=== PATIENT | female | born 1955 | race Caucasian/White ===

== ENCOUNTER → 2023-05-27 | Outpatient (CLI) | payer MEDICARE ==
--- NOTE | 2023-05-27 16:57 | CA ---
Stress Echo Report Lara Buckley Age: 68 Gender: F : 1955 Exam Date: 05/27/2023 10:18 Exam Location: Ht (in): 62 Wt (lb): 189 Ordering Physician: Cornelio Whitmore DO Referring Physician: CORNELIO WHITMORE,, Pattern Lease Inspector: VINCENT, Technologist Procedure CPT: Indication: R94.31 ICD-9 Codes: Rhythm: Patient History: Cardiac Medications: Medications in past 24 hours: Contrast: Stress Results Protocol: Alvarado Total dose(mL): Exercise Duration (min:sec): 03:[address] Depression (mm): Angina Score: Corona Score: METS: 5.4 Resting HR: 91 Resting BP: 192 / 81 Peak HR: 161 Peak BP: 239 / 111 Max Predicted HR: 152 106 % Max Predicted HR Target HR: 129 Double Product: [id number] Stress Summary: BP Response: Reason for Termination: Cardiac Symptoms: ECG Analysis Resting ECG: Normal sinus rhythm, heart rate 79 beats a minute Stress ECG: Normal sinus rhythm. [address] depressions, which represents physiological response. Arrhythmia: Few monomorphic PVCs noticed during peak stress with one 4 beat run nonsustained V. tach. No sustained Echo Analysis Resting Echo: Peak Echo Analysis: MEASUREMENTS (Male/Female) Normal Values CONCLUSIONS Patient exercised for 3 minutes 43 seconds, achieving 5.4 mets Poor exercise tolerance Hypertensive at baseline. Hypertensive response to exercise Nonischemic ECG response to exercise Dr Willard Belle (Electronically Signed) Final Date: 27 May 2023 16:56
== END | disposition home or self-care (01) ==
LOC: RADNMMAIN 09:32
PROVIDERS: ATTEND Internal Medicine
DX: Z01.810 Encounter for preprocedural cardiovascular examination (principal); I10 Essential (primary) hypertension; R94.31 Abnormal electrocardiogram [ECG] [EKG]
CPT/HCPCS: 93351

== ENCOUNTER 2023-06-07 13:08 | Day surgery (SDC) | payer MEDICARE ==
[2023-06-05 15:53] VITALS: BMI 34.0
[~2023-06-07 13:08] MED LIST: ALPRAZolam 0.25 MG TAB PO PRN; ALPRAZolam 0.5 MG TAB PO PRN; ASPIRIN 325 MG TAB PO STA; ATORVASTATIN 80 MG TAB PO STA; HEPARIN SODIUM,PORCINE (1 ML) 2,500 UNIT in SODIUM CHLORIDE 0.9% 250 ML IRRIGATION PRN; HEPARIN SODIUM,PORCINE 10,000 UNIT in SODIUM CHLORIDE 0.9% 1,000 ML IRRIGATION PRN; NITROGLYCERIN SL TABS 0.4 MG TAB SUBLINGUAL PRN
[2023-06-07] MEDS ORDERED: SODIUM CHLORIDE 0.9% 1,000 ML IV ONE (13:50)
[2023-06-07] MEDS ORDERED: LIDOCAINE 1% INJ 10MG/ML (20 ML MDV) ONE (14:18)
[2023-06-07] MEDS ORDERED: VERAPAMIL 2.5 MG/ML 2 ML AMP ONE (14:18)
[2023-06-07] MEDS ORDERED: HEPARIN SODIUM 1,000 UN/ML (10ML VL) ONE (14:23)
[2023-06-07] MEDS ORDERED: fentaNYL (PF) 50 MCG/ML 2 ML AMP ONE (14:23)
[2023-06-07] MEDS ORDERED: fentaNYL (PF) 50 MCG/1 ML VIAL IVP ONE (14:28)
[2023-06-07] MEDS ORDERED: MIDAZOLAM 2 MG/2 ML VIAL IVP ONE (14:28)
[2023-06-07] MEDS ORDERED: LIDOCAINE 1% INJ 10MG/ML (20 ML MDV) SQ ONE (14:30)
[2023-06-07] MEDS ORDERED: VERAPAMIL SYRINGE (5 MG/10 ML) INTRAARTER ONE (14:33)
[2023-06-07] MEDS ORDERED: HEPARIN SODIUM 1,000 UN/ML (10ML VL) IV ONE (14:36)
[2023-06-07] MEDS ORDERED: IOPAMIDOL-370 100ML BTL INJ ONE (14:50)
--- NOTE | 2023-06-07 14:56 | P.CARDCATH ---
Description of Procedure: PROCEDURES PERFORMED: Left heart catheterization, bilateral coronary angiography, ultrasound guided arterial access, iFR LAD INDICATION: Abnormal stress test CONSENT:I have discussed the risks, benefits and alternative therapies for the above-mentioned procedure and for both sedation/analgesia as well as necessary blood product administration, if indicated, as they pertain to this patient. The patient has indicated understanding and acceptance of the risks and procedures discussed. PROCEDURE: After the risks, benefits and alternatives of the above mentioned procedure explained in detail with the patient, informed consent was obtained. Patient was taken to the catheterization lab and prepped and draped in usual fashion. Ultrasound guidance was used to assess for arterial access. 1% lidocaine was used to anesthetize the right radial artery. A 6-Lithuanian sheath was placed in the right radial artery using modified Seldinger technique and ultrasound guidance. Left coronary angiography was performed with a 5-Lithuanian JL 3.5 catheter and right coronary angiography was performed with a 5-Lithuanian JR5 catheter in various views. A 5-Lithuanian FR5 catheter was inserted into the left ventricle and pressure measurements were obtained. The mid LAD appeared predominantly more mild to moderate however was nearly 50% and some views and was in the area of abnormal stress test and therefore decision made to perform iFR. Through the FL 3.5 catheter, a 0.014 pressure wire was advanced into the left main and normalized. The pressure wire was then advanced 1 cm distal to the mid LAD lesion. The initial reading was 0.9 however there was some drift noted and therefore the wire was read normalized and advance and iFR was normal at 0.94. The right radial sheath was removed and a TR band was placed with hemostasis achieved. The patient tolerated the procedure well. Patient was transported back to the post catheterization holding area in stable condition. Conscious Sedation: Patient was monitored under the direct supervision of myself for conscious sedation using Versed and fentanyl for a total duration of 23 minutes HEMODYNAMICS: Aorta: 164/69 LV: 161/6, LVDP 13 SELECTIVE CORONARY ARTERIOGRAPHY: LEFT MAIN: The left main is a large caliber vessel which bifurcates into the LAD and circumflex. There is no significant stenosis. LEFT ANTERIOR DESCENDING CORONARY ARTERY: LAD is a large caliber vessel which wraps around to the apex. There is are tandem 30-40% and 40-50% mid LAD stenoses and otherwise mild luminal irregularities. LEFT CIRCUMFLEX CORONARY ARTERY: Left circumflex is a moderate caliber vessel without significant stenosis. RIGHT CORONARY ARTERY: The right coronary artery is a large caliber vessel which gives off a PDA and PLV branch and is the dominant vessel. There is no significant stenosis. FINAL IMPRESSION: 1. Relatively normal coronary arteries other than mid LAD 40-50% stenosis, iFR normal 2. Normal left sided filling pressures PLAN: 1. Aggressive risk factor modification per most recent ACC/AHA guidelines. 2. Follow-up in the office in 1-2 weeks.
[2023-06-07 15:46] LABS: Glucose,Whole Blood 96 mg/dL (70-110)
[2023-06-07] MEDS ORDERED: hydrALAZINE HCL 20 MG/ML 1 ML VIAL ONE (16:08)
--- NOTE | 2023-06-07 16:09 | CT ---
EXAMINATION TYPE: CODE STROKE: CT brain wo contr DATE OF EXAM: 06/07/2023 COMPARISON: None HISTORY: 68-year-old female Rule out stroke. TECHNIQUE: Examination was done in axial plane without intravenous contrast. Coronal and sagittal r econstructions performed. CT DLP: 1035.10 mGycm Automated exposure control for dose reduction was used. FINDINGS: Exam limitations due to motion along the vertex of the head. Allowing for this limitation, there is n o evidence of acute intracranial hemorrhage, acute ischemic changes, mass, mass-effect, or extra-axi al fluid collection. There is no effacement of cerebral sulci or basal subarachnoid cisterns. There is no hydrocephalus. There is no midline shift. Mccall-white matter distinction is preserved. Partially empty sella. There are 9 mm polyp or mucosal retention cyst along the anterior roof of the left maxillary sinus. L eftward nasal septal deviation. Trace mucosal thickening ethmoid air cells. Orbits and globes are int act. Mastoid air cells are well pneumatized. IMPRESSION: Some motion limiting assessment at the top of the head. Otherwise, no acute intracranial abnormality seen.
--- NOTE | 2023-06-07 16:44 | CT ---
EXAMINATION TYPE: CODE STROKE: CTA head neck DATE OF EXAM: 06/07/2023 COMPARISON: CT brain same day HISTORY: 68-year-old female Rule out stroke. TECHNIQUE: Contiguous axial scanning of the head and neck performed with IV Contrast, patient injecte d with 65 ml mL of Isovue 370. Coronal/sagittal MIP reconstructions performed. 3-D reconstructions ge nerated on a dedicated workstation. CT DLP: 469.0 mGycm Automated exposure control for dose reduction was used. FINDINGS: NECK: Large main pulmonary arteries suggesting underlying pulmonary hypertension. Variant direct takeoff of the left vertebral artery directly from the aortic arch. Great vessels from the aortic arch are patent. There is a dominant left vertebral artery. Otherwise, both vessels are patent throughout their course . The right common carotid artery is patent. Mild atherosclerotic change of the right carotid bulb with mild, less than 25% narrowing at the proxi mal right ICA by NASCET criteria. Remainder of the right ICA is patent. The left common and left internal carotid arteries are widely patent without significant narrowing. HEAD: Dominant left vertebral artery. The right vertebral artery terminates as a PICA branch. The basilar a rtery is patent. There is persistent origin left posterior cerebral artery with hypoplastic P1 segment. Posterio r circulation otherwise patent. The dural venous sinuses are patent. The bilateral internal carotid arteries are patent. Slightly hypoplastic A1 segment left anterior cer ebral artery. Otherwise, remainder of the anterior circulation is patent. No aneurysmal change is seen. IMPRESSION: 1. NECK: DOMINANT LEFT VERTEBRAL ARTERY THAT TAKES A VARIANT ORIGIN DIRECTLY FROM THE AORTIC ARCH. TH ERE IS MILD, LESS THAN 25% PROXIMAL RIGHT ICA STENOSIS. NO HEMODYNAMICALLY SIGNIFICANT INTERNAL CAROT ID ARTERY STENOSIS ON EITHER SIDE. 2. HEAD: ANATOMIC VARIATION WITH THE RIGHT VERTEBRAL ARTERY TERMINATING A PICA BRANCH. PERSISTENT ORIGIN LEFT POSTERIOR CEREBRAL ARTERY. HYPOPLASTIC A1 SEGMENT LEFT ANTERIOR CEREBRAL ARTERY. NO LARGE VESSEL INTRACRANIAL ARTERIAL OCCLUSION, SIGNIFICANT STENOSIS, OR ANEURYSMAL CHANGE IS SEEN.
--- NOTE | 2023-06-07 17:21 | P.CNNES ---
History of Present Illness Consult date: 06/07/23 Requesting physician: Cornelio Caraballo Reason for Consult: Stroke code History of Present Illness: Patient is a 68-year-old right-handed female with history of tobacco abuse, abnormal EKG, hypertension, came to the hospital for elective cardiac catheterization for abnormal EKG. Patient had shoulder issues, and was planning for shoulder replacement but was found to have abnormal EKG with lateral T-wave inversions and family history of CAD. Therefore patient was scheduled for elective cardiac catheterization, which was performed today. During the procedure, patient received 2 mg of Versed IV push, fentanyl 75 g IV push 1 dose and heparin 3500 units IV 1 dose. Patient also has received 325 mg of aspirin prior to the cath. She has been taking aspirin 81 mg daily for last 1 week since she was found to have abnormal EKG. Cardiac cath performed today showed relatively normal coronary arteries other than made LAD 40-50% stenosis. Normal left-sided filling pressures. Aggressive risk factor modification was recommended. Patient's stress echo revealed poor exercise tolerance. Hypertensive at baseline. Hypertensive response to exercise. Apparently after the cardiac cath, patient was doing fine, went to the bathroom by herself. However at around 3:35 PM, patient started complaining of headache. Shortly after, she was noted to be stumbling on the words, not knowing her family, per patient, not making sense. She could not answer questions. This prompted stroke code. This was activated at 3:41 PM. There was no associated facial droop, visual disturbance, focal numbness, tingling or any focal weakness. Patient's vital signs just prior to stroke code showed blood pressure of 235/99, and repeat was 213/91. Patient's NIH stroke scale was 2. Patient was sent for computed tomography scan of the head, CTA of head and neck. When she returned back, the symptoms had resolved. The headache also resolved. Overall the symptoms lasted for about 30-35 minutes total. At present patient has no symptoms. All symptoms resolved. Stroke team discussed case with stroke neurologist from [place]. Patient was considered not a candidate for TPA. No LVO on CTA. Medical management. Home medications include aspirin 81 mg (started 06/05/2023), losartan 50 mg, metoprolol 12.5 mg, vitamin D and multivitamins. On medication started since May 2023. She was not on any medication. Patient has smoked half pack per day for 15 years. Patient has hypertension. Denies diabetes or any significant alcohol use. No previous history of strokes or TIA. Patient was diagnosed with hypertension just this month. Review of Systems Constitutional: Denies chills, Denies fever Eyes: denies blurred vision, denies discharge, denies pain Ears: deny: decreased hearing, ear discharge Ears, nose, mouth and throat: Denies headache (Patient had headache during stroke symptoms, but now resolved.), Denies sore throat Cardiovascular: Denies chest pain, Denies shortness of breath Respiratory: Denies cough, Denies excessive sputum Gastrointestinal: Denies abdominal pain, Denies diarrhea, Denies nausea, Denies vomiting Genitourinary: Denies dysuria, Denies hematuria Musculoskeletal: Denies low back pain, Denies myalgias, Denies neck pain Integumentary: Denies pruritus, Denies rash Neurological: Reports as per HPI Psychiatric: Denies anxiety, Denies depression Endocrine: Denies fatigue, Denies weight change Past Medical History Past Medical History: Hypertension, Myocardial Infarction (NM), Osteoarthritis (OA) Additional Past Medical History / Comment(s): "EKG showed silent heart attack, echo and stress test show I may have a blockage". Varicose vein right leg. Last Myocardial Infarction Date:: Unknown History of Any Multi-Drug Resistant Organisms: None Reported Past Surgical History: Appendectomy, Joint Replacement, Tonsillectomy Additional Past Surgical History / Comment(s): Left total knee replacement, procedure on toe, wisdom teeth removed, bilateral cataract surgery. Past Anesthesia/Blood Transfusion Reactions: No Reported Reaction Past Psychological History: No Psychological Hx Reported Smoking Status: Current every day smoker Past Alcohol Use History: None Reported Additional Past Alcohol Use History / Comment(s): Smokes 1/2 ppd, has smoked on and off for a total of 15 yrs. Past Drug Use History: None Reported - Past Family History Father Family Medical History: Cancer Additional Family Medical History / Comment(s): Skin cancer. Brother(s) Family Medical History: Cancer Additional Family Medical History / Comment(s): Prostate cancer. Mother Family Medical History: Cancer Additional Family Medical History / Comment(s): Lung cancer. Medications and Allergies Home Medications Medication Instructions Recorded Confirmed Type Aspirin [Adult Low Dose Aspirin EC] 81 mg PO DAILY 06/05/23 06/07/23 History Cholecalciferol [Vitamin D3 (25 25 mcg PO Q7D 06/05/23 06/05/23 History Mcg = 1000 Iu)] Losartan Potassium 50 mg PO HS 06/05/23 06/05/23 History Metoprolol Succinate [Metoprolol 12.5 mg PO HS 06/05/23 06/05/23 History Succinate ER] Multivitamins, Thera [Multivitamin 1 tab PO Q7D 06/05/23 06/05/23 History (formulary)] Vitamin B 50 mg PO Q7D 06/05/23 06/05/23 History Allergies Allergy/AdvReac Type Severity Reaction Status Date / Time codeine Allergy Unknown Verified 06/07/23 13:56 Physical Examination - Vital Signs Vital Signs: Vital Signs Temp Pulse Resp BP BP Pulse Ox 06/07/23 14:00 98 F 78 16 235/99 213/91 97 Intake and Output 06/07/23 06/07/23 06/07/23 06:59 14:59 22:59 Intake Total 150 Balance 150 Intake: IV 150 Other: Weight 86.7 kg Patient is an elderly female, very pleasant, in no acute distress. Patient is alert awake oriented to time place and person. Speech and language functions are normal. Patient can name and repeat very well. No aphasia or dysarthria. Attention, concentration and fund of knowledge is adequate. On cranial nerve examination, pupils are equal, round and reacting to light, visual solis are full on confrontation, with no neglect on double simultaneous stimulation. Extraocular muscles are intact with no nystagmus. Face is symmetric, tongue protrudes to the midline. Palatal elevation and sensation normal, hearing and shoulder shrug normal, facial sensation normal. On muscle strength testing, there is no pronator drift and the strength is normal in arms and legs distally and proximally. Deep tendon reflexes are symmetric 2+ all over in the arms and legs and plantars are downgoing bilaterally. Sensory to touch is equal with no neglect on double simultaneous stimulation. Cerebellar function showed no ataxia for [id number] testing. No dysdiadochokinesia. No ataxia for [id number] testing on either side. Tone and bulk of muscles normal. Gait deferred.. On general examination, there is no carotid bruit or murmur, S1-S2 audible. Chest is clear on consultation. Abdomen is soft nontender. No organomegaly, bowel sounds present. Peripheral pulses are present. No edema. Assessment and Plan Assessment: * Possible TIA versus acute encephalopathy from transient accelerated hypertension (hypertensive encephalopathy), occurred post cardiac catheterization. Symptoms lasted for about 35 minutes. At present all symptoms resolved. Current NIH stroke scale is 0. * Hypertension * Tobacco use * Right shoulder arthritis Plan: * Patient had possible TIA, symptoms now completely resolved. No indication for TPA. * Recommend observation overnight. Patient will undergo TIA workup. * 2-D echo with bubble study to rule out PFO * CTA head and neck showed: Mild less than 25% proximal right ICA stenosis. No hemodynamically significant stenosis ICA in either ICA. CTA of the head showed no large vessel intercranial arterial occlusion, significant stenosis or aneurysm. * No indication for MRI, as the symptoms were very brief, and all symptoms resolved. The yield is very low, and likely will not change the management. * Fasting a.m. lipid panel * Hemoglobin A1c * Aspirin 325 mg daily. * Optimize control of blood pressure. * Close neuro checks every 1 hour 4, then 2 hours 4, then every 4 hours.. * Recommend complete tobacco cessation. * Telemetry monitoring rule out any arrhythmia * Dr. Arriaga will cover neurology service over the weekend. Thank you for the consult.
[2023-06-07] MEDS: SODIUM CHLORIDE 0.9% 1,000 ML in EMPTY BAG 1 BAG IV SCH (18:34)
[2023-06-07] MEDS ORDERED: ACETAMINOPHEN TAB 500 MG TAB PO STA (18:47)
[2023-06-07] MEDS ORDERED: LOSARTAN 50 MG TAB PO SCH (21:00)
[2023-06-07] MEDS ORDERED: METOPROLOL SUCCINATE (ER) 25 MG TAB.ER.24H PO SCH (21:00)
[2023-06-07] MEDS ORDERED: ATORVASTATIN 80 MG TAB PO SCH (21:00)
[2023-06-08] MEDS: SODIUM CHLORIDE 0.9% 1,000 ML in EMPTY BAG 1 BAG IV SCH (06:51)
[2023-06-08 08:51] VITALS: RESP 20
[2023-06-08] MEDS ORDERED: ASPIRIN 325 MG TAB PO SCH (09:00)
--- NOTE | 2023-06-08 09:51 | MR ---
EXAMINATION TYPE: MR brain wo con DATE OF EXAM: 06/08/2023 9:38 AM COMPARISON: CT brain 06/07/2023. CLINICAL INDICATION:Female, 68 years old with history of Code Stroke; PHH, TECHNIQUE: Multi planar, multi sequence imaging was performed through the brain. No gadolinium was gi ludwin. FINDINGS: The mays-white junctions, ventricular system, and cisterns appear unremarkable. Patchy foci of high T2 signal intensity are seen within the periventricular and subcortical white matter. Small T2/T1 hyp erintense likely Rathke cleft cyst measuring 7 mm within septation. No surrounding mass effect. Diffu tejas-weighted imaging shows no evidence of restricted diffusion. The susceptibility weighted images d o not reveal any evidence for micro-hemorrhage. The bone marrow signal is within normal limits. Bilateral aphakia. 9 mm polyp or mucosal retention cy st within the left maxillary sinus. IMPRESSION: 1. No evidence of acute/subacute infarct. 2. Nonspecific white matter changes, likely secondary to small vessel ischemic disease. 3. 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 No surrounding mass effect.
--- NOTE | 2023-06-08 10:47 | P.CRDCN ---
History of Present Illness Consult date: 06/08/23 History of present illness: HISTORY OF PRESENT ILLNESS: Patient is a 68-year-old female who was initially seen outpatient by Dr. Caraballo for perioperative evaluation. She had an abnormal EKG for which a treadmill echo stress test. Her stress echo was abnormal for which she underwent a heart cath. Yesterday she underwent an outpatient heart cath which showed moderate nonobstructive coronary artery disease with 2% stenosis in the LAD. No interventions were done. Most heart cath she had symptoms of feeling confused. The symptoms started around 20-30 minutes after the procedure and last for less 5 minutes. She was evaluated by n eurologist. Her NIH stroke score was 0. Her CT head did not show any acute findings. Her CT a neck showed around 20% carotid disease. She had not had any recurrence of her symptoms overnight. This morning she is doing well. REVIEW OF SYSTEMS: REVIEW OF SYSTEMS: CONSTITUTIONAL:[]. Patient is doing well. No complaints of fever or chills EYES:[] Pupils are equal and reactive. EARS, NOSE, MOUTH, THROAT: Denies headaches, denies sore throat. CARDIOVASCULAR: [Denies chest pain, denies shortness of breath, denies palpitations] RESPIRATORY: Denies shortness of breath, denies cough. GASTROINTESTINAL: Denies change in appetite, denies abdominal pain GENITOURINARY: Denies hematuria, denies infections. MUSKULOSKELETAL: Denies pain, denies swelling. INTEGUMENTARY: Denies rash, denies eczema. NEUROLOGICAL: [] Denies focal weakness, or visual disturbance. Denies any dizziness or syncope PSYCHIATRIC: Denies anxiety, denies depression. HEMATOLOGIC/LYMPHATIC: Denies anemia, denies enlarged lymph nodes. MEDICATIONS: Aspirin 325, atorvastatin 80 mg, losartan, metoprolol. PHYSICAL EXAMINATION:GENERAL EXAM: Patient is alert and oriented and doesn't appear to be in any acute distress HEENT: Normocephalic. Normal reaction of pupils, equal size, normal range of extraocular motion. No erythema or exudates in the throat. NECK: No masses, no nuchal rigidity. CHEST: No chest wall deformity. LUNGS: [Equal air entry with no crackles or wheeze.] HEART: [S1 and S2 normal with no audible mumurs or gallops. Regular rhythm, femorals equal on both sides..] ABDOMEN: No hepatosplenomegaly, normal bowel sounds, no guarding or rigidity. SKIN: No rashes CENTRAL NERVOUS SYSTEM: No focal deficits. EXTREMITIES: [No cyanosis, clubbing or edema.] IMPRESSION: 1. TIA 2. Nonobstructive moderate coronary artery disease. 50% mid LAD disease, IFR neg, no intervention done PLAN: Continue medical therapy for moderate coronary artery disease with aspirin and atorvastatin. Continue losartan and metoprolol Await neurology evaluation and MRI results Patient is otherwise cleared for discharge from cardiac arrest for standpoint Past Medical History Past Medical History: Hypertension, Myocardial Infarction ([place]), Osteoarthritis ([place]) Additional Past Medical History / Comment(s): "EKG showed silent heart attack, echo and stress test show I may have a blockage". Varicose vein right leg. Last Myocardial Infarction Date:: Unknown History of Any Multi-Drug Resistant Organisms: None Reported Past Surgical History: Appendectomy, Joint Replacement, Tonsillectomy Additional Past Surgical History / Comment(s): Left total knee replacement, procedure on toe, wisdom teeth removed, bilateral cataract surgery. Past Anesthesia/Blood Transfusion Reactions: No Reported Reaction Past Psychological History: No Psychological Hx Reported Smoking Status: Current every day smoker Past Alcohol Use History: None Reported Additional Past Alcohol Use History / Comment(s): Smokes 1/2 ppd, has smoked on and off for a total of 15 yrs. Past Drug Use History: None Reported - Past Family History Father Family Medical History: Cancer Additional Family Medical History / Comment(s): Skin cancer. Brother(s) Family Medical History: Cancer Additional Family Medical History / Comment(s): Prostate cancer. Mother Family Medical History: Cancer Additional Family Medical History / Comment(s): Lung cancer. Medications and Allergies Home Medications Medication Instructions Recorded Confirmed Type Aspirin [Adult Low Dose Aspirin EC] 81 mg PO DAILY 06/05/23 06/07/23 History Cholecalciferol [Vitamin D3 (25 25 mcg PO Q7D 06/05/23 06/05/23 History Mcg = 1000 Iu)] Losartan Potassium 50 mg PO HS 06/05/23 06/05/23 History Metoprolol Succinate [Metoprolol 12.5 mg PO HS 06/05/23 06/05/23 History Succinate ER] Multivitamins, Thera [Multivitamin 1 tab PO Q7D 06/05/23 06/05/23 History (formulary)] Vitamin B 50 mg PO Q7D 06/05/23 06/05/23 History Allergies Allergy/AdvReac Type Severity Reaction Status Date / Time codeine Allergy Unknown Verified 06/07/23 13:56 Physical Exam Vitals: Vital Signs Temp Pulse Pulse Pulse Resp BP BP 06/08/23 08:00 97.9 F 60 20 06/08/23 04:00 98.6 F 55 L 16 120/70 06/07/23 23:40 98.4 F 54 L 16 125/73 06/07/23 20:00 98.3 F 56 L 16 130/69 06/07/23 17:46 69 16 115/81 06/07/23 16:46 68 16 153/74 06/07/23 16:16 69 16 155/81 06/07/23 15:46 70 16 157/73 06/07/23 15:37 67 16 235/99 06/07/23 15:31 71 16 162/77 06/07/23 15:16 68 16 173/90 06/07/23 15:01 72 16 171/91 06/07/23 14:00 98 F 78 16 235/99 BP Pulse Ox 06/08/23 08:00 164/78 98 06/08/23 04:00 99 06/07/23 23:40 99 06/07/23 20:00 96 06/07/23 17:46 97 06/07/23 16:46 97 06/07/23 16:16 97 06/07/23 15:46 97 06/07/23 15:37 96 06/07/23 15:31 97 06/07/23 15:16 96 06/07/23 15:01 96 06/07/23 14:00 213/91 97 Intake and Output 06/07/23 06/08/23 06/08/23 22:59 06:59 14:59 Intake Total 740 180 Output Total 400 Balance 340 180 Intake: IV 500 Oral 240 180 Output: Urine 400 Other: # Voids 2 1 Weight 86.7 kg Results Current Medications Generic Name Dose Route Start Last Admin Trade Name Freq PRN Reason Stop Dose Admin Alprazolam 0.25 mg 06/07/23 06:02 Alprazolam 0.25 Mg Tab PO 07/07/23 06:03 Q6HR PRN Mild Anxiety Alprazolam 0.5 mg 06/07/23 06:02 Alprazolam 0.5 Mg Tab PO 07/07/23 06:03 Q6HR PRN Moderate Anxiety Aspirin 325 mg 06/08/23 09:00 06/08/23 08:16 Aspirin 325 Mg Tab PO 325 mg DAILY ARNAUD Administration Atorvastatin Calcium 80 mg 06/07/23 21:00 06/07/23 21:22 Atorvastatin 80 Mg Tab PO 80 mg HS ARNAUD Administration Sodium Chloride 1,000 ml/ IV 1,000 mls @ 84.368 mls/hr 06/07/23 06:02 06/08/23 06:51 Solution IV 07/07/23 06:03 Not Given .[id number] ARNAUD 1 ML/KG/HR Losartan Potassium 50 mg 06/07/23 21:00 06/07/23 21:22 Losartan 50 Mg Tab PO 50 mg HS ARNAUD Administration Metoprolol Succinate 12.5 mg 06/07/23 21:00 06/07/23 21:22 Metoprolol Succinate (Er) 25 Mg Tab.Er.24h PO 12.5 mg HS ARNAUD Administration Nitroglycerin 0.4 mg 06/07/23 06:02 Nitroglycerin Sl Tabs 0.4 Mg Tab SUBLINGUAL 07/07/23 06:03 Q5M PRN Chest Pain Intake and Output 06/07/23 06/08/23 06/08/23 22:59 06:59 14:59 Intake Total 740 180 Output Total 400 Balance 340 180 Intake: IV 500 Oral 240 180 Output: Urine 400 Other: # Voids 2 1 Weight 86.7 kg
[2023-06-08 11:41] VITALS: BP 168/83; PULSE 59; TEMP 97.8
[2023-06-08 12:55] LABS: Chol/HDL Ratio 4.17 Ratio; LDL Cholesterol,Calculated 162.7 mg/dL (0.0-131.0)
--- NOTE | 2023-06-09 16:38 | CA ---
Transthoracic Echo Report Name: Lara Buckley Age: 68 Gender: F : 1955 Exam Date: 06/08/2023 10:14 Exam Location: [place] [facility] Ht (in): 62 Wt (lb): 191 Ordering Physician: Matheus Hinojosa MD Attending/Referring Phys: Micaela Jarvis;[id number] Stained [employer] Glazier Crystal Wren RDCS Procedure CPT: Indications: ?TIA Cardiac Hx: Technical Quality: Fair Contrast 1: Total Dose (mL): Contrast 2: Total Dose (mL): MEASUREMENTS (Male / Female) Normal Values 2D ECHO LV Diastolic Diameter PLAX 4.4 cm 4.2 - 5.9 / 3.9 - 5.3 cm LV Systolic Diameter PLAX 3.1 cm IVS Diastolic Thickness 1.5 cm 0.6 - 1.0 / 0.6 - 0.9 cm LVPW Diastolic Thickness 1.2 cm 0.6 - 1.0 / 0.6 - 0.9 cm LV Relative Wall Thickness 0.6 LA Volume 60.4 cm??? 18 - 58 / 22 - 52 cm??? DOPPLER AV Peak Velocity 131.7 cm/s AV Peak Gradient 6.9 mmHg AV Mean Velocity 86.9 cm/s AV Mean Gradient 3.5 mmHg AV Velocity Time Integral 31.4 cm LVOT Peak Velocity 53.5 cm/s LVOT Peak Gradient 1.1 mmHg LVOT Velocity Time Integral 27.4 cm MV Area PHT 2.6 cm??? Mitral E Point Velocity 58.6 cm/s Mitral A Point Velocity 69.8 cm/s Mitral E to A Ratio 0.8 MV Deceleration Time 293.3 ms TR Peak Velocity 267.7 cm/s TR Peak Gradient 28.7 mmHg Right Ventricular Systolic Press 33.7 mmHg FINDINGS Left Ventricle Mildly increased left ventricular wall thickness. Normal left ventricular systolic function with no obvious regional wall motion abnormalities. Left ventricular ejection fraction is estimated at 55 %. Right Ventricle Normal LV size and function. Right ventricular systolic pressure within normal limits. Right Atrium Normal right atrial size. Negative agitated saline bubble study for right to left shunt. Left Atrium Mildly increased left atrial volume. Mitral Valve Structurally normal mitral valve. Mild mitral regurgitation. Aortic Valve No aortic valve stenosis or regurgitation. Tricuspid Valve Structurally normal tricuspid valve. Mild tricuspid regurgitation. Pulmonic Valve Trace pulmonic regurgitation. Pericardium No pericardial effusion. Aorta Normal size aortic root and proximal ascending aorta. CONCLUSIONS Normal LV size and systolic function. LVEF estimated at 55% No obvious regional wall motion abnormality Mild mitral regurgitation No significant chamber size abnormality No [id number] shunt on bubble study Previewed by: Dr Willard Belle (Electronically Signed) Final Date: 09 June 2023 16:37
--- NOTE | 2023-06-11 09:56 | P.PN ---
Subjective Progress Note Date: 06/08/23 The patient is a 68-year-old female who is seen in neurologic follow-up on June 08, 2023, via teleneurology. The patient's chart has been reviewed. The patient reportedly had a transient episode of neurologic deficit following her cardiac catheterization. These neurologic findings were also associated wi th markedly elevated blood pressure. MRI of the brain was performed. It was found to be negative for acute infarct and hemorrhage. Lipid panel reveals elevated LDL of 162.7. Total cholesterol is elevated at 242. Echocardiogram is negative for right to left shunt. Objective - Vital Signs Vital signs: Vital Signs Temp 97.8 F 06/08/23 11:38 Pulse 59 L 06/08/23 11:38 Resp 20 06/08/23 11:38 BP 168/83 06/08/23 11:38 Pulse Ox 98 06/08/23 11:38 FiO2 - Exam Gen.: The patient is reclining in the bed. She is in no acute distress. HEENT: Head is atraumatic, normocephalic. Fundus not visualized. There is no scleral icterus. Mucous members are moist Cranial nerves: 2-12 grossly intact Motor: Patient is moving all 4 extremities without difficulty Assessment and Plan Assessment: * Possible TIA versus acute encephalopathy from transient accelerated hypertension (hypertensive encephalopathy), occurred post cardiac catheterization. Symptoms lasted for about 35 minutes. At present all symptoms resolved. Current NIH stroke scale is 0. MRI of the brain is negative for acute ischemia. Would err or on the side of caution and treat this episode as a transient ischemic attack * Hypertension * Tobacco use * Right shoulder arthritis Plan: Aspirin 325 mg daily. * Optimize control of blood pressure. * Close neuro checks every 1 hour 4, then 2 hours 4, then every 4 hours.. * Recommend complete tobacco cessation. * Telemetry monitoring rule out any arrhythmia * High-dose statin should be initiated In light of the patient's elevated LDL * The patient is neurologically stable for discharge Time with Patient: Less than 30 (Spent 25 minutes caring for this patient today including, obtaining history, examining the patient, reviewing imaging, labs, chart documentation and creating this note)
== END 2023-06-08 12:53 | disposition home or self-care (01) ==
LOC: CATHCVL 13:08 → 3SCARD 18:24 → CATHCVL 06-08 12:53
PROVIDERS: ATTEND Internal Medicine
DX: I25.10 Atherosclerotic heart disease of native coronary artery without angina pectoris (principal); I10 Essential (primary) hypertension; F17.210 Nicotine dependence, cigarettes, uncomplicated; Z82.49 Family history of ischemic heart disease and other diseases of the circulatory system; Z79.82 Long term (current) use of aspirin; I25.2 Old myocardial infarction; Z90.89 Acquired absence of other organs; Z90.49 Acquired absence of other specified parts of digestive tract; Z96.652 Presence of left artificial knee joint; Z80.1 Family history of malignant neoplasm of trachea, bronchus and lung
CPT/HCPCS: 93306; 93458; 93799; 76937; 80061; 83036; 70496; 70450; 70498; 70551; C1769 ×2; C1894; J2250; J2001; J1644; Q9967; J3010